=== PATIENT | female | born 1995 | race Caucasian/White ===

== ENCOUNTER → 2021-02-12 08:39 | Outpatient (CLI) | payer BC, SELFPAY ==
--- NOTE | ~2021-02-12 | XR_ITS ---
EXAMINATION: XR wrist LT 2V DATE: 02/12/2021 09:15 INDICATION: Left wrist pain post fall 6 months prior TECHNIQUE: Posteroanterior and lateral views of the left wrist were obtained. COMPARISON: none FINDINGS: Alignment is normal. No fracture. Joint spaces are normal. Soft tissues are unremarkable. IMPRESSION: 1. Negative left wrist radiographs. Reviewed, dictated and finalized at location A.
== END ==
DX: M25.532 Pain in left wrist (principal)
CPT/HCPCS: 73100